=== PATIENT | female | born 1990 | race Caucasian/White ===

== ENCOUNTER 2016-04-06 12:46 | Emergency (ER) | payer OTHER ==
[~2016-04-06] VITALS: Ht 154.9 cm; Wt 69.4 kg
[~2016-04-06 12:46] MED LIST: OMEP20CA9 PO; RANI150T9 PO
[2016-04-06 12:50] VITALS: Ht 154.9 cm; Wt 69.4 kg
[2016-04-06 14:29] LABS: URINE BLOOD (Dip) POC Trace-lysed (NEGATIVE)
--- NOTE | 2016-04-06 14:41 | ERD ---
ER Documentation Chief Complaint Date/Time DATE: 04/06/16 TIME: 14:40 Chief Complaint PT DRANK A DRINK FROM [employer] THAT HAD GLASS IN IT, FEELS THROAT ITCHY HPI This is a 25-year-old female presenting to the emergency room complaining of swallowed glass particles from drinking a smoothie at [employer] at 10 AM today. Patient states that she felt that her throat was itchy at the time and she look into this meeting there was glass particles. Patient showed a picture of tiny glass particles. Patient denies any hemoptysis, shortness of breath or significant abdominal pain. Patient states that she feels more panicky than having any other complaints ROS All systems reviewed and are negative except as per history of present illness. Medications Home Meds Active Scripts Ranitidine Hcl* (Zantac*) 150 Mg Tablet, 150 MG PO DAILY Y for PAIN, #30 TAB Prov:KAYKAY KELSEY PA-C 11/04/14 Omeprazole* (Prilosec*) 20 Mg Capsule.dr, 20 MG PO DAILY, #30 CAP Prov:KAYKAY KELSEY PA-C 11/04/14 Allergies Allergies: Coded Allergies: No Known Allergy (Unverified , 11/04/14) PMhx/Soc Medical and Surgical Hx: pt denies Medical Hx, pt denies Surgical Hx History of Surgery: No Anesthesia Reaction: No Hx Neurological Disorder: No Hx Respiratory Disorders: No Hx Cardiac Disorders: No Hx Psychiatric Problems: No Hx Miscellaneous Medical Probl: No Hx Alcohol Use: No Hx Substance Use: No Hx Tobacco Use: No (QUIT) Physical Exam Vitals Vital Signs Date Time Temp Pulse Resp B/P Pulse Ox O2 Delivery O2 Flow Rate FiO2 04/06/16 15:53 97.9 67 16 123/74 100 Room Air 04/06/16 12:50 98.5 97 20 142/76 100 Physical Exam Const: WD/WN, patient is clinically anxious to condition Head: Atraumatic, airways intact, oropharynx clear Eyes: Normal Conjunctiva ENT: Normal External Ears, Nose and Mouth. Neck: Full range of motion..~ No meningismus. Resp: Clear to auscultation bilaterally Cardio: Regular rate and rhythm, no murmurs Abd: Soft, non tender, non distended. Normal bowel sounds Skin: No petechiae or rashes Back: No midline or flank tenderness Ext: No cyanosis, or edema Neur: Awake and alert Psych: Normal Mood and Affect Results 24 hrs Laboratory Tests Test 04/06/16 14:32 Bedside Urine Blood Trace-lysed Bedside Urine Glucose (UA) Negative Bedside Urine Ketones (LAB) 1+ Bedside Urine Leukocyte Esterase (L Negative Bedside Urine Nitrite (LAB) Negative Bedside Urine Protein (LAB) Negative Bedside Urine pH (LAB) 5.0 Procedures/MDM This is a 25-year-old female presenting to the emergency room complaining of that she may have swallowed tiny pieces of glass particles from a smoothie at [employer] at 10 AM today. Patient had a picture of the glass particles. On examination, patient airways are intact. There was no evidence of oropharyngeal injury. Patient's abdominal exam was unremarkable. X-ray of the neck, chest and x-ray KUB was done to rule out glass particles. Radiologist stated there was no evidence of radiopaque foreign bodies throughout. I have reassessed patient and she continues to feel okay. I have discussed this case with my supervising physician , he states that patient is suitable for discharge with precautions to return to the emergency room for any worsening signs or symptoms including abdominal pain. Patient is hematuria stable for discharge with precautions. Patient understands and agrees with this plan Departure Diagnosis: Primary Impression: Swallowed foreign body Condition: Stable BERNIE HODGSON PA-C Apr 06, 2016 14:41
--- NOTE | 2016-04-06 15:17 | RADRPT ---
PROCEDURE: XR Chest. CLINICAL INDICATION: Foreign body (glass) TECHNIQUE: Chest PA and lateral. COMPARISON: No comparison available. FINDINGS: The mediastinal structures are unremarkable. The heart is normal in size and configuration. The pu lmonary vascularity is normal. The lung miller are unremarkable. No consolidation is identified. The pleural spaces are unremarkable. The axial skeleton is unremarkable. No radiopaque foreign body is identified IMPRESSION: No active intrathoracic disease. No foreign body identified RPTAT: HGDB .Kenneth Garcia MD, MD Date Time Electronically viewed and signed by .Kenneth Garcia MD, on 04/06/2016 15:17 .B/
--- NOTE | 2016-04-06 15:19 | RADRPT ---
PROCEDURE: X-ray soft tissue neck CLINICAL INDICATION: Glass foreign body TECHNIQUE: AP and lateral of the soft tissues of the neck available for review. COMPARISON: None available FINDINGS: The epiglottis is normal. The airway is clear. The oropharynx and nasopharynx are normal. The vocal cords are unremarkable. No subglottic narrowing is identified. The osseous structures are unremarka ble. There is no evidence of precervical soft tissue swelling. No radiopaque foreign body is identif ied IMPRESSION: Unremarkable examination. .Kenneth Garcia MD, MD Date Time Electronically viewed and signed by .Kenneth Garcia MD, MD on 04/06/2016 15:19 .B/
--- NOTE | 2016-04-06 15:20 | RADRPT ---
PROCEDURE: XR Abdomen 1 vw. CLINICAL INDICATION: Foreign body (glass) TECHNIQUE: AP view of the abdomen COMPARISON: None. FINDINGS: No radiopaque foreign body is identified. No organomegaly is identified. There is a nonspecific bowel gas pattern. There is no evidence of b owel obstruction. No free air is identified. No calculi are identified. The axial skeleton is unre markable. IMPRESSION: No radiopaque foreign body identified. Unremarkable examination. RPTAT: HGDB .Kenneth Garcia MD, Date Time Electronically viewed and signed by .Kenneth Garcia MD, on 04/06/2016 15:20 .B/
[2016-04-06 15:53] VITALS: BP 123/74; PULSE 67; RESP 16; TEMP 97.9
== END 2016-04-06 15:53 | disposition home or self-care (01) ==
LOC: FTE 12:46
DX: T18.9XXA Foreign body of alimentary tract, part unspecified, initial encounter (principal); X58.XXXA Exposure to other specified factors, initial encounter; Y92.9 Unspecified place or not applicable
CPT/HCPCS: 70360; 71010; 74000; 81003; Z7502

== ENCOUNTER 2016-04-14 18:11 | Emergency (ER) | payer OTHER ==
[~2016-04-14] VITALS: Ht 154.9 cm; Wt 71.5 kg
[2016-04-14 18:51] VITALS: Ht 154.9 cm; Wt 71.5 kg
[2016-04-14 20:04] LABS: URINE BLOOD (Dip) POC Trace-intact (NEGATIVE)
--- NOTE | 2016-04-14 20:57 | RADRPT ---
PROCEDURE: CT abdomen and pelvis without intravenous contrast. CLINICAL INDICATION: Rectal bleeding. TECHNIQUE: CT of the abdomen/pelvis was performed utilizing axial images with reconstructions in s agittal and coronal planes. The administered radiation dose is CTDI 11.3 mGy, DLP 591 mGy-cm. COMPARISON: No pertinent prior examinations were submitted for comparison. FINDINGS: Visualized Chest: The visualized lung bases are clear. Abdomen: The liver, spleen, pancreas, gallbladder,and adrenal glands are unremarkable. The kidneys are without hydronephrosis. No definite urinary calculi are seen. There is no evidence of bowel obstruction. The appendix is normal. No intra-abdominal free air is seen. No definite colonic diverticula are identified. There is no evidence of intra-abdominal adenopathy or free fluid. Pelvis: There is no evidence of pelvic adenopathy. The uterus and ovaries are without enlargement. The uri nary bladder is unremarkable. There is no pelvic free fluid. No definite perirectal abnormalities are seen. Osseous structures: Unremarkable. IMPRESSION: No acute findings. RPTAT: HIKT .Jone Oro MD, Date Time Electronically viewed and signed by .Jone Oro MD, on 04/14/2016 20:57 .T/
[2016-04-14] MEDS ORDERED: HYDR25SU23 PR (21:02)
[2016-04-14] MEDS ORDERED: ACET325T33 PO (21:02)
[2016-04-14 21:10] VITALS: BP 118/65; PULSE 88; RESP 18; TEMP 98.3
--- NOTE | 2016-04-15 04:39 | ERD ---
DATE OF SERVICE: 04/14/2016 HISTORY OF PRESENT ILLNESS: The patient is a 25-year-old female coming in complaining of rectal ble eding. The patient was here 1 week ago. She had x-rays done because she found multiple small shard s of glass in her smoothie and she was concerned because over the last 2 days she has had rectal ble eding. She has some pain noted around the rectum. She has mild abdominal pain. No vomiting. She states that she has not had hemorrhoids in the past. She is not straining to use the bathroom more than normal. The patient states that she only has blood when she has had bowel movements. There is no blood within her underwear, and it is bright red blood in the bowl. PAST MEDICAL HISTORY: Denies any other medical problems. ALLERGIES: DENIES ALLERGIES TO MEDICATIONS. PAST SURGICAL HISTORY: Denies. SOCIAL HISTORY: Denies. REVIEW OF SYSTEMS: A 12-point review of systems was done. Positives as in HPI; all other systems n egative. PHYSICAL EXAMINATION: VITAL SIGNS: Temperature is 98.9, pulse 88, blood pressure is 126/92, respiratory rate 18, O2 satur ation 98% on room air. Pain intensity 9/10. GENERAL: The patient is well-appearing, well-nourished, no acute distress. HEENT: Atraumatic. Conjunctivae are pink. Pupils equal, round, and reactive to light. There is no s cleral icterus. Tympanic membranes clear bilaterally. Oropharynx clear. No nystagmus or photophobia . CHEST: Clear to auscultation bilaterally. There are no rales, wheezes or rhonchi. HEART: Regular rate and rhythm. No murmurs, clicks, rubs or gallops. No S3 or S4. ABDOMEN: Soft, nontender and nondistended. Good bowel sounds. No rebound or guarding. No gross quiana tonitis. No gross organomegaly or masses. No Medrano sign or McBurney point tenderness. RECTAL: There is 1 nonthrombosed hemorrhoid noted externally. There is no surrounding erythema, no bleeding noted around the rectum, no tenderness to palpation, no fluctuance. EMERGENCY ROOM COURSE: The patient had a CT abdomen and pelvis without contrast which showed no acu te findings. The patient's urine was negative. DIAGNOSIS: Rectal bleeding, unspecified. MEDICAL DECISION MAKING: I have low suspicion for hemodynamic stability. The patient's vital signs are stable. The patient is nontoxic appearing. She is not complaining of dizziness. I am not con cerning for anemia or indication for transfusion. I did not feel it was necessary to check the merced ent's blood work. I have low suspicion for intestinal perforation or retained foreign body. CTs ar e within normal limits; however, the patient does have a rectal hemorrhoid. She may have internal h emorrhoids which are causing bleeding, but the patient also may have small fissures secondary to swa llowing glass. I did not feel that there was indication for further imaging or workup at this time. The patient was stable and nontoxic appearing with normal vitals. DISCHARGE: The patient is discharged stable. The patient is given prescription for Anusol and Tyle nol and told to follow up with primary care within 1 to 2 days for reevaluation. The patient was to ld if symptoms progress or worsen to return to the ER. All other questions answered at time of disc harge. Discharge summary given at the time of departure. The patient understood and complied with plan. Dictated By: RIGOBERTO GONZALES for SAVANNAH LEONARDO/JULIUS Conf#: [id number] DID#: [id number]
== END 2016-04-14 21:15 | disposition home or self-care (01) ==
LOC: FTE 18:11
DX: K62.5 Hemorrhage of anus and rectum (principal); Z87.891 Personal history of nicotine dependence
CPT/HCPCS: 74176; 81003; Z7502